=== PATIENT | female | born 1970 | race Caucasian/White ===

== ENCOUNTER → 2024-06-10 12:21 | Outpatient (REF) | payer OTHER, SELFPAY | LOC: MRI 3T 12:21 | PROVIDERS: ATTENDING PHYSICIAN Nurse Practitioner Adult Health; FAMILY PHYSICIAN Family Medicine | DX: G43.411 Hemiplegic migraine, intractable, with status migrainosus (principal); R41.3 Other amnesia; R25.1 Tremor, unspecified | CPT/HCPCS: 70553; A9575 ==

== ENCOUNTER → 2024-10-08 10:56 | Outpatient (REF) | payer OTHER, SELFPAY | LOC: HWWDC 10:56 | PROVIDERS: ATTENDING PHYSICIAN Family Medicine | DX: Z12.31 Encounter for screening mammogram for malignant neoplasm of breast (principal) | CPT/HCPCS: 77063; 77067 ==

== ENCOUNTER → 2024-10-28 09:14 | Outpatient (REF) | payer OTHER, SELFPAY | LOC: HWRAD 09:14 | PROVIDERS: ATTENDING PHYSICIAN Family Medicine | DX: F17.210 Nicotine dependence, cigarettes, uncomplicated (principal) | CPT/HCPCS: 71271 ==

== ENCOUNTER → 2025-03-10 10:14 | Outpatient (REF) | payer OTHER, SELFPAY | LOC: WDC 10:14 | PROVIDERS: ATTENDING PHYSICIAN Emergency Medicine | DX: N64.4 Mastodynia (principal); N64.2 Atrophy of breast | CPT/HCPCS: 76642; 77061; 77065 ==

== ENCOUNTER → 2025-05-28 12:54 | Outpatient (REF) | payer OTHER, SELFPAY | LOC: HWRAD 12:54 | PROVIDERS: ATTENDING PHYSICIAN Obstetrics & Gynecology Gynecologic Oncology; FAMILY PHYSICIAN Family Medicine | DX: Z15.02 Genetic susceptibility to malignant neoplasm of ovary (principal); Z15.01 Genetic susceptibility to malignant neoplasm of breast; R10.30 Lower abdominal pain, unspecified | CPT/HCPCS: 76830; 76856 ==

== ENCOUNTER → 2025-06-09 17:34 | Outpatient (REF) | payer OTHER, SELFPAY | LOC: MRI 3T 17:34 | PROVIDERS: ATTENDING PHYSICIAN Nurse Practitioner Adult Health; FAMILY PHYSICIAN Family Medicine | DX: Z15.89 Genetic susceptibility to other disease (principal); R92.2 Inconclusive mammogram | CPT/HCPCS: 77049; A9585 ==

== ENCOUNTER → 2025-06-11 09:43 | Outpatient (REF) | payer OTHER, SELFPAY | LOC: RAD 09:43 | PROVIDERS: ATTENDING PHYSICIAN Obstetrics & Gynecology Gynecologic Oncology; FAMILY PHYSICIAN Family Medicine | DX: Z15.02 Genetic susceptibility to malignant neoplasm of ovary (principal); Z15.01 Genetic susceptibility to malignant neoplasm of breast; R10.30 Lower abdominal pain, unspecified | CPT/HCPCS: 74177; Q9967 ==

== ENCOUNTER → 2025-06-16 14:42 | Outpatient (REF) | payer OTHER, SELFPAY | LOC: WDC 14:42 | PROVIDERS: ATTENDING PHYSICIAN Nurse Practitioner Adult Health; FAMILY PHYSICIAN Family Medicine | DX: R92.8 Other abnormal and inconclusive findings on diagnostic imaging of breast (principal) | CPT/HCPCS: 76642 ==

== ENCOUNTER 2025-06-30 06:17 | Day surgery (SDC) | payer OTHER, SELFPAY ==
[2025-06-16 11:15] LABS: Hematocrit 43.8 % (37.0-47.0); Hemoglobin 15.2 g/dL (12.0-16.0); Mean Corp Hgb Conc. 34.7 g/dL (33.0-37.0); Mean Corpuscular Volume 93.6 fL (81.0-99.0); Platelet Count 170 10^3/uL (130-400); Red Cell Dist. Width 11.3 % (11.5-14.5)
[2025-06-16 13:16] LABS: ALT (SGPT) 17 U/L (0-35); AST (SGOT) 22 U/L (14-36); Albumin 4.4 g/dl (3.5-5.0); Alkaline Phosphatase 91 U/L (38-126); Blood Urea Nitrogen 10 mg/dl (7-17); Calcium 9.8 mg/dl (8.4-10.2); Carbon Dioxide 31 mmol/L (22-30); Chloride 104 mmol/L (98-107); Glucose 90 mg/dl (70-99); Potassium 4.3 mmol/L (3.5-5.1); Sodium 140 mmol/L (135-145); Total Protein 6.7 g/dl (6.3-8.2); eGFR > 60.00
[2025-06-16 13:45] VITALS: BMI 25.7
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
[2025-06-30] VITALS (8 sets, daily range): BP systolic 91–105; BP diastolic 56–82; BMI 25.7
[2025-06-30] MEDS: HEPARIN 5000 UNITS SC (08:26)
[2025-06-30] MEDS: TYLENOL 1000 MG PO (08:26)
[2025-06-30] MEDS: NEURONTIN 300 MG PO (08:26)
[2025-06-30] MEDS: VANCOCIN 200 IV (08:47)
[2025-06-30] MEDS: NORMOSOL-R/PLASMALYTE-A 1000 IV (08:47)
--- NOTE | 2025-06-30 10:50 | OR.RPT ---
Operative Report
Operative Report
Date of procedure: June 30, 2025
Primary Surgeon: Prem Higgins MD
Assisting Surgeon: Trinity Smyth PA-C
Pre-op Diagnosis: PALB2 mutation, desires risk reducing oophorectomy status post prior total hysterectomy and bilateral salpingectomy
Post-op Diagnosis: Same, normal-appearing bilateral ovaries with pelvic adhesions
Procedure Performed: Robotic assisted laparoscopic bilateral oophorectomy with lysis of adhesions
Anesthesia Type: General, endotracheal intubation, tap block
Specimen / Cultures: Right ovary, left ovary, vaginal cuff adhesion, pelvic washings
Estimated Blood Loss: 10 cc
Complications: None
Operative Findings: Exploration of the abdomen reveals right and left diaphragms as well as right and left lobes of the liver to be within normal limits, there is normal-appearing omentum with adhesions to the right and left pelvic brim secondary to
prior surgery, uterus and bilateral tubes are absent, both ovaries are adherent to the psoas muscle just at the level of pelvic brim, there is remnants of mesosalpinx adjacent to them, there is no peritoneal implants or ascites visualized portions
of the bowel including large and small bowel are essentially normal. Adhesions are noted between sigmoid epiploica and vaginal apex
Procedure in detail: This patient was taken to the operating room and placed in supine position general anesthesia was administered she was intubated without any difficulty. Appropriate IV lines were placed by anesthesia, she was positioned in the
lithotomy position using yellowfin stirrups, bilateral arms
were wrapped in foam and placed along the patient's side. The patient was prepped and draped in the abdomen perineum and vagina and upper thighs and she was draped. Timeout procedure was carried out. We ensured that the patient received
appropriate antibiotics and DVT prophylaxis. Kamara catheter was placed under sterile conditions in the bladder, a sponge on a stick was placed in the vagina for intraoperative identification of the vaginal canal. Attention was turned abdominally
and Veress needle was inserted just below left subcostal margin into the peritoneal cavity and pneumoperitoneum was created with CO2 gas up to pressure of 15 mmHg. 8 mm robotic port was introduced 25 cm cephalad to symphysis pubis into the
peritoneal cavity, under direct visualization Celina block was performed using 30 cc 0.2% ropivacaine diluted in another 30 cc sterile saline and 1 mg Decadron injected equally bilaterally 2 fingerbreadths below the lateral aspect of subcostal margins
as well as right and left mid abdomen laterally. 8 mm XI robotic ports were introduced in the right and left upper quadrants as well as right and left lateral abdomen and a survey of the abdomen was performed with the findings noted above and the
patient was then placed in 28 degree Trendelenburg and robotic platform was docked. In the pelvis adhesions between the sigmoid colon and vaginal apex was and a biopsy of this was sent to pathology we performed washings in the pelvis and
submitted that for cytology evaluation the round ligaments were sealed and divided the ovaries were elevated the peritoneum adjacent to both the right and left ovary was dissected open and some of the residual adnexal vessels and medial adnexal
tissue was left attached to the ovary and the course of the infundibulopelvic ligaments were identified and isolated and all the other adhesions were taken down. The course of the ureter was identified in the retroperitoneum and a window was
created between IP ligaments and the ureter, both IP ligaments were sealed 3 times and divided each ovary was placed in a separate endoscopic bag with a plan for removal after completion of the laparoscopy. We irrigated all operative sites in the
pelvis and noted good hemostasis there was no injury to ureter blood vessels or nerves. Robotic system was undocked and pneumoperitoneum was released. We removed both specimens through the right lower quadrant 8 mm port without any difficulty the
fascia was repaired with a [id number] suture of 0 Vicryl. I then went ahead and closed all ports with 4-0 Monocryl in a subcuticular fashion. Skin glue was applied to all incisions. Patient was awakened extubated and returned back to
recovery room stable awake and extubated condition. Counts of laps instruments and needle was correct x 2, I was present and scrubbed for entire procedure as dictated above
Disposition: To PACU stable awake and extubated
== END 2025-06-30 12:47 | disposition home or self-care (01) ==
LOC: SDS 06:17
PROVIDERS: ATTENDING PHYSICIAN Obstetrics & Gynecology Gynecologic Oncology; FAMILY PHYSICIAN Family Medicine
DX: N94.89 Other specified conditions associated with female genital organs and menstrual cycle (principal); N73.6 Female pelvic peritoneal adhesions (postinfective); Z15.09 Genetic susceptibility to other malignant neoplasm; Z90.710 Acquired absence of both cervix and uterus
CPT/HCPCS: 58661; 36415; 80053; 85027; 86850; 86900; 86901; 88112; 88305; 93005